=== PATIENT | male | born 1985 | race Caucasian/White ===

== ENCOUNTER 2020-07-01 18:57 | Inpatient (IN) | payer MEDICAID ==
[~2020-07-01] VITALS: Ht 137.2 cm; Wt 65.1 kg
--- NOTE | ~2020-07-01 | CON ---
[address] [address] CONSULTATION Name: AGNES WALLIS Room: [address] IN M.R.#: [id number] Admission: 07/01/20 Attend Phys: Nils Gaffney Discharge: 07/02/20 Date of : 89 Report #: [id number] THIS REPORT FOR: cc: Uriel Marr MD, Michael S. MD ~ Mitul Uriostegui MD DATE OF SERVICE: 07/02/2020 CONSULT REQUESTED BY: Dr. Osmar Newton,. INDICATION FOR CONSULTATION: Acute hypoxemic respiratory failure. HISTORY OF PRESENT ILLNESS: A 35-year-old gentleman has a history of cerebral palsy. He has a cuffless size 5 trach and a button tracheostomy with intermittent feeds. The patient has had a difficult airway in the past when the tracheostomy was last changed. The [facility] resides at a [facility]. He was reported to have had increasing lethargy as well as weakness and altered mental status and increasing white frothy oral secretions. He was therefore being taken to [facility] via EMS when he became bradycardic and heart rate dropped into the 20s. [facility] was the nearest hospital at that time and therefore, the patient was given atropine and then was transferred here. The patient initially also was hypotensive. He was also hypothermic and his temperature was only 29.9 degrees Celsius. He initially did require dopamine to maintain blood pressure. He also was given IV fluids. The patient continued to have significant shortness of breath as well as tachypnea and also copious secretions in his throat. Therefore, he was placed on a BiPAP. The patient currently is maintaining blood pressure towards the lower end of normal range. He initially was maintaining O2 saturations only in the upper 80s when I saw him initially with 40% FiO2 with a BiPAP of 10/[address] I increased the BiPAP pressures to 14/6 and we did initially increase FiO2 100%. He has just had an arterial blood gas performed, which does show a metabolic as well as respiratory acidosis with a pH of 7.295 but pO2 is now 378. The patient has had a PICC line placed. He is maintaining blood pressure without dopamine at this time. The patient is markedly lethargic and therefore is unable to provide a further history or review of systems. PAST MEDICAL HISTORY: Cerebral palsy, severe trauma as a , longstanding trach size 5 also, has a button PEG tube and a Lawrence catheter in place. It is not known to me as to whether the Lawrence catheter is long-term, right hip surgery and cholecystectomy. SOCIAL HISTORY: Lifetime nonsmoker. No known history of heavy alcohol use [place] [address] CONSULTATION Name: AGNES WALLIS Room: [address] IN M.R.#: [id number] Admission: 07/01/20 Attend Phys: Nils Gaffney Discharge: 07/02/20 Date of : 89 Report #: [id number] CURRENT MEDICATIONS: List in [employer] reviewed. HOME MEDICATIONS: List also in [employer] reviewed. ALLERGIES: No known drug allergies. FAMILY HISTORY: No pertinent family history. PHYSICAL EXAMINATION: GENERAL: He is markedly drowsy. He has some response to verbal command, but does respond to pain. VITAL SIGNS: Has a pulse of 85 and a blood pressure of 111/59. He was hypoxemic with O2 saturations only in the high 80s when I saw him initially on 40% BiPAP. Currently, he is on a BiPAP of 14/6 with 100% FiO2. He is saturating close to 100% and his pO2 on arterial blood gas is also 378, pulse of 85 and a blood pressure of 111/58, he is now off dopamine. His respiratory rate at the time of my examination was still elevated to around 25-30. He is afebrile and no longer hypothermic. His temperature is now 36.1. HEENT: Head is normocephalic and atraumatic but he appears to have a very narrow airway Mallampati 4 and will likely be a difficulty endotracheal intubation. There are some hemorrhagic secretions in his throat. NECK: Does not show raised JVP, asymmetry, mass or lymph nodes. There is a tracheostomy in place. CHEST: Symmetrical expansion on inspection and palpation. On auscultation, there are transmitted sounds from upper airways. There is some hemorrhagic secretions being suctioned from his tracheostomy as well. HEART: Regular. There is no murmur. ABDOMEN: Soft and nontender. There is a button gastrostomy in place. EXTREMITIES: Lower extremities do show 1+ edema, no calf tenderness. SKIN: Dry and intact. NEUROLOGICAL: Moves all extremities to pain. LABORATORY DATA: The patient's chest x-ray does show raised right hemidiaphragm. There are bilateral extensive infiltrates. There is a CT chest without contrast performed yesterday as well, which does not show additional findings. The patient also had a CT of the abdomen and pelvis and CT head. All of the reports are in [employer] and reviewed. PICC line does appear to be in the right atrium. The patient's lab work as well as arterial blood gases are in [employer] and these are reviewed and also discussed above. ASSESSMENT AND PLAN: 1. Compromised airway/acute hypoxemic/hypercarbic respiratory failure. The patient has a size 5 cuffless tracheostomy tube. We do not have a cuffed tracheostomy tube of the same size available in this hospital. We checked with [address] [address] CONSULTATION Name: AGNES WALLIS Room: [address] IN M.R.#: [id number] Admission: 07/01/20 Attend Phys: Nils Gaffney Discharge: 07/02/20 Date of : 89 Report #: [id number] the other hospitals and most other hospitals also do not have a cuffed tube of this unusual size. We do have a size #6 cuffed Shiley trach available, but the patient has been difficult tracheostomy change when the patient last had one performed. We do not have an ENT physician on staff and I did reviewed with Dr. Landaverde who is the general surgeon available to change tracheostomy. I feel at this time that the safer option is to transfer him over to a facility where ENT is available, if a size 5 cuffed trach is available at that institution, may consider placing that first otherwise he may need to be switched over to a size 6 trach to be adequately ventilated. Meanwhile, we will keep him on the BiPAP due to excessive leak. The return volumes on the BiPAP or not measurable at this time. Regardless, the patient's arterial blood gas shows that he is currently compensated on BiPAP and he is oxygenating adequately. He has had a PICC line already placed, would also benefit from an arterial line. 2. Pulmonary infiltrates. COVID-19 does still need to be ruled out. His antigen was negative. His PCR is pending. He is on Zosyn. If he is not transported out of here shortly then I will consider adding vancomycin after obtaining a nasal swab for methicillin-resistant Staphylococcus aureus as well as sputum for culture. We will start nebulized bronchodilators. He is on dexamethasone 6 mg daily. I will go ahead and give one dose of Solu-Medrol as well. 3. Cerebral palsy. 4. Status post PEG and trach. 5. Edema/fluid and electrolyte/hypotension/bradycardia. The bradycardia may have been due to respiratory distress. He is currently maintaining normal blood pressure. He has no other intake. Currently, we are holding tube feeds so I ordered IV fluids 50 an hour until a secure airway is obtained. I will also running on the continuous drier operator side and therefore, I ordered one dose of Lasix as well, which may help bring his potassium down also. His blood pressure as well as electrolytes will need to be followed closely and fluid intake and diuresis adjusted accordingly. He may benefit from venous Dopplers as well as an echocardiogram as well. 6. Thrombocytopenia/elevated LFTs, etiology not fully defined, follow, we will add lipase to his lab work. He has had some hemorrhagic discharge from his tracheostomy as well as throat, we will watch this closely and decide regarding subcutaneous Lovenox at prophylactic dose for deep venous thrombosis prophylaxis accordingly. The patient [place] [address] CONSULTATION Name: AGNES WALLIS Room: [address] IN [facility]#: [id number] Admission: 07/01/20 Attend Phys: Nils Gaffney Discharge: 07/02/20 Date of : 89 Report #: [id number] Total time spent providing critical care to this patient today is around 45 minutes. By: [id number] Uriostegui MD /igor
[2020-07-01 18:59] VITALS: BP 117/60
[2020-07-01] MEDS ORDERED: ACETAMINOP160 MG/5 M PER TUBE (19:14)
[2020-07-01] MEDS ORDERED: NEBULIZER MISCELL (19:15)
[2020-07-01 19:16] LABS: URINE BLOOD 3+ (Negative); URINE CLARITY SL CLOUDY; URINE COLOR YELLOW; URINE GLUCOSE-RANDOM NEGATIVE (Negative); URINE KETONES NEGATIVE (Negative); URINE NITRITE-REFLEX NEGATIVE (Negative); URINE PROTEIN 1+ (Negative); URINE SPECIFIC GRAVITY <= 1.005 (1.005-1.030); URINE UROBILINOGEN 0.2 E.U./dl (0.2-1.0)
[2020-07-01] MEDS ORDERED: NORVASC 2.5 MG2.5 M1 PO (19:16)
[2020-07-01] MEDS ORDERED: BACLOFEN 10MG T10 MG PO (19:16)
[2020-07-01] MEDS ORDERED: BENADRYL A12.5 MG/5 PO (19:17)
[2020-07-01] MEDS ORDERED: BISACODYL5 MG RECTAL (19:18)
[2020-07-01 19:19] LABS: ICTOTEST (BILI CONFIRMATORY) Negative (Negative); URINE BILIRUBIN 1+ (Negative); URINE LEUKOCYTES-REFLEX 3+ (Negative)
[2020-07-01] MEDS ORDERED: DIAZEPAM5 MG/5 ML PO (19:19)
[2020-07-01] MEDS ORDERED: REFRESH DIGITAL10 ML EA. EYE (19:19)
[2020-07-01] MEDS ORDERED: CUVPOSA1 MG/5 ML PO (19:20)
[2020-07-01] MEDS ORDERED: NYSTATIN1 EAC3 TOP (19:21)
[2020-07-01] MEDS ORDERED: SUPER THERAVIT1 EACH PO (19:21)
[2020-07-01] MEDS ORDERED: MIRALAX119 GM PO (19:22)
[2020-07-01] MEDS ORDERED: ZONEGRAN100 MG PO (19:22)
[2020-07-01] MEDS ORDERED: PHENYTOIN100 MG/41 PO (19:22)
[2020-07-01 19:26] LABS: BACTERIA-REFLEX >30 Many /HPF (None Seen); CASTS None Seen /LPF (None Seen); MUCUS 0-3 Light strn/LPF (None Seen); SQUAMOUS 0-3 Few /LPF (0-3); URINE RBC 0-2 Rare /HPF (0-2); URINE WBC-REFLEX 0-5 Rare /HPF (0-5)
[2020-07-01 19:27] LABS: AMORPHOUS PHOSPHATES Moderate /LPF (None Seen); TRIPLE PHOSPHATE CRYSTALS 0-3 Few /LPF (None Seen)
[2020-07-01 19:28] LABS: ABSOLUTE EOSINOPHILS 0.2 thou/uL (0.0-0.7); ABSOLUTE LYMPHOCYTES 1.1 thou/uL (0.8-5.3); ABSOLUTE MONOCYTES 0.6 thou/uL (0.0-1.2); ABSOLUTE NEUTROPHILS 3.9 thou/uL (1.6-8.1); BASOPHILS 0.3 %; EOSINOPHILS 3.3 %; HEMATOCRIT 39.2 % (42.0-52.0); LYMPHOCYTES 19.1 %; MCH 31.2 pg (26.0-34.0); MCHC 33.2 g/dL (28.0-37.0); MONOCYTES 10.1 %; MPV 9.3 fl. (7.2-11.1); NUCLEATED RBCS 2 /100WBC; PLATELET COUNT* 102 thou/uL (150-400); POLYS 67.2 %; RBC 4.18 mil/uL (4.50-6.00); RDW-CV 16.7 % (10.5-14.5); WBC 5.8 thou/uL (4.0-11.0)
[2020-07-01 19:37] LABS: CALCIUM 9.5 mg/dL (8.5-10.1); CREATININE 0.7 mg/dL (0.6-1.3); POTASSIUM 4.3 mmol/L (3.5-5.1)
[2020-07-01 19:39] LABS: APTT 36.8 Seconds (25.0-31.3); PROTIME 10.6 Seconds (9.20-11.50)
[2020-07-01 19:50] LABS: INFLUENZA A ANTIGEN Negative (Negative); INFLUENZA B ANTIGEN Negative (Negative)
[2020-07-01 19:52] LABS: ALBUMIN 2.7 g/dL (3.4-5.0); CK-MB MASS 2.4 ng/mL (<0.5-3.6); TOTAL BILIRUBIN 0.2 mg/dL (<0.1-1.0); TOTAL PROTEIN 7.5 g/dL (6.4-8.2)
[2020-07-01 20:11] LABS: BE -7.1 mmol/L (-2 to +3); PCO2 48.2 mmHg (35.0-45.0)
[2020-07-01 20:16] LABS: PO2 172.8 mmHg (75.0-100.0); pH 7.243 (7.340-7.450)
[2020-07-02] VITALS (32 sets, daily range): BP systolic 93–122; BP diastolic 39–65
--- NOTE | 2020-07-02 09:22 | EKG ---
[place] [address] ELECTROCARDIOGRAM REPORT Name: AGNES WALLIS Room: [address] ADM IN .R.#: [id number] Admission: 07/01/20 Attend Phys: Karthik Tam Discharge: Date of : 89 Date of Service: 07/01/20 1906 Report #: [id number] THIS REPORT FOR: //name// [facility] ED Test Date: 2020-07-01 Test Time: 19:06:26 Pat Name: AGNES WALLIS Department: Room: [facility] Gender: M [employer] Administrator: TRANG : 1985 Requested By: Ramiro Godinez Order Number: [id number] MD: Johnny Walker Measurements Intervals [place] Rate: 37 P: 28 IL: 194 QRS: 165 QRSD: 97 T: 49 QT: 539 QTc: 423 Interpretive Statements Sinus bradycardia incomplete RBBB right axis nonspecific st segment changes No previous ECG available for comparison Electronically Signed On 07-02-2020 9:22:32 PLACEMENT INTERVIEWER by Johnny Walker [email or web address] <ELECTRONICALLY SIGNED> By: Johnny Walker MD, [facility] 07/02/20 0922 190 05 Johnny Walker MD, [facility] /EPI
[2020-07-02 11:16] LABS: HEMATOCRIT 35.1 % (42.0-52.0); HEMOGLOBIN 11.8 gm/dL (14.0-18.0); MCH 31.3 pg (26.0-34.0); MCHC 33.6 g/dL (28.0-37.0); MCV 93.3 fL (80.0-100.0); MPV 9.2 fl. (7.2-11.1); NUCLEATED RBCS 2 /100WBC; PLATELET COUNT* 99 thou/uL (150-400); RBC 3.76 mil/uL (4.50-6.00); WBC 11.8 thou/uL (4.0-11.0)
[2020-07-02 11:41] LABS: ABSOLUTE LYMPHOCYTES 0.2 thou/uL (0.8-5.3); ABSOLUTE NEUTROPHILS 11.6 thou/uL (1.6-8.1); PLATELET ESTIMATE DECREASED
[2020-07-02 11:42] LABS: ANISOCYTOSIS 1+; POIKILOCYTOSIS 1+
[2020-07-02 11:45] LABS: BE -4.1 mmol/L (-2 to +3); PCO2 47.4 mmHg (35.0-45.0)
[2020-07-02 11:49] LABS: pH 7.295 (7.340-7.450)
[2020-07-02 11:59] LABS: CALCIUM 8.6 mg/dL (8.5-10.1); CREATININE 0.9 mg/dL (0.6-1.3); POTASSIUM 5.4 mmol/L (3.5-5.1)
[2020-07-02 12:03] LABS: ALBUMIN 2.4 g/dL (3.4-5.0); TOTAL BILIRUBIN 0.3 mg/dL (<0.1-1.0); TOTAL PROTEIN 6.8 g/dL (6.4-8.2)
--- NOTE | 2020-07-03 08:32 | CON ---
[facility] [address] [place] [address] CONSULTATION Name: AGNES WALLIS Room: [address] IN M.Corazon.#: [id number] Admission: 07/01/20 Attend Phys: Nils Gaffney Discharge: 07/02/20 Date of : 89 Report #: [id number] THIS REPORT FOR: cc: Uriel Marr MD, Michael S. MD ~ Johnny Walker MD [facility] DATE OF SERVICE: 07/02/2020 CARDIOLOGY CONSULTATION HISTORY OF PRESENT ILLNESS: The patient is a 35-year-old male with cerebral palsy who I was asked to see in the hospital today after he was noted to be bradycardic. The history was obtained from the records. The patient has never been here to [place] before. Unfortunately, he has cerebral palsy and he lives in a long-term. He is basically bedridden and has contractures. He has a tracheostomy and a PEG tube in place. He was brought to the Emergency Room yesterday by ambulance. He apparently had been weak and had frothy secretions. He was noted to be bradycardic and was given atropine. PAST MEDICAL HISTORY: Otherwise significant for cerebral palsy. He is bedbound. He has a tracheostomy and a PEG tube and Lawrence. Yesterday, he was less responsive and had increased secretions. His blood pressure is low and he was noted to be bradycardic. He was noted to be hypothermic. He was brought to the Emergency Room for further evaluation and treatment. MEDICATIONS: At long-term included nebulizer, amlodipine, baclofen, Valium as needed, Dilantin. ALLERGIES: He has no known drug allergies. SOCIAL HISTORY: He is a nonsmoker. REVIEW OF SYSTEMS: Could not be obtained. PHYSICAL EXAMINATION: GENERAL: Revealed a middle-aged male, lying in bed in the ICU. He had contractures. VITAL SIGNS: His blood pressure is 100 on a dopamine drip, pulse is 60. He is afebrile. HEENT: He was anicteric. Conjunctivae are pink. Mucous membranes appear dry. NECK: Veins do not appear distended. CHEST: Revealed coarse breath sounds bilaterally. CARDIOVASCULAR: Regular rate and rhythm without murmur. ABDOMEN: [place] [address] CONSULTATION Name: AGNES WALLIS Room: [address]#: [id number] Admission: 07/01/20 Attend Phys: Nils Gaffney Discharge: 07/02/20 Date of : 89 Report #: [id number] EXTREMITIES: Had no edema. NEUROLOGIC: He would withdraw from pain. RADIOLOGICAL DATA: His ECG on admission showed sinus bradycardia, right axis, incomplete right bundle-branch block. His workup in the Emergency Room yesterday, he had a portable chest x-ray that showed right hemidiaphragm is elevated. Mild interstitial infiltrates were noted. Normal heart size. His CT scan of the head performed without contrast that showed atrophy, no acute changes. LABORATORY WORK: Sodium 135, BUN 20, creatinine 0.7, glucose 68. His troponin is 0.06. BNP 33. White blood cell count 5.8, hemoglobin 13. His COVID-19 antigen test was negative. Urinalysis; 1+ protein, 3+ blood, 3+ leukocytes, many bacteria. IMPRESSION AND RECOMMENDATIONS: 1. Altered mental status. Possible sepsis. 2. Bradycardia. We would avoid beta-blockers. We would check thyroid function studies. I would not treat at this time. 3. Possible sepsis. The patient is on dopamine. 4. Cerebral palsy. The patient is basically bedridden. 5. Previous tracheostomy. 6. History of hypertension. The patient is on a calcium josé miguel. We would hold at this time. <ELECTRONICALLY SIGNED> By: Johnny Walker MD, FACC 07/03/20 0832 [id number] [id number] Walker MD, FAC /nt
== END 2020-07-02 16:13 | disposition short-term general hospital (02) | DRG 871 ==
LOC: M.ERS 18:57 → M.TBA-ER 23:30 → M.ICU 07-02 00:47
PROVIDERS: Emergency Medicine; Family Medicine; Internal Medicine Critical Care Medicine; ADMIT Internal Medicine; ATTEND Internal Medicine
PROC: B548ZZA Ultrasonography of Superior Vena Cava, Guidance (ICD-10-PCS; principal; 2020-07-02)
PROC: 5A09357 Assistance with Respiratory Ventilation, Less than 24 Consecutive Hours, Continuous Positive Airway Pressure (ICD-10-PCS; principal; 2020-07-02)
PROC: 02HV33Z Insertion of Infusion Device into Superior Vena Cava, Percutaneous Approach (ICD-10-PCS; principal; 2020-07-02)
DX: A41.9 Sepsis, unspecified organism (principal); J96.01 Acute respiratory failure with hypoxia; J96.02 Acute respiratory failure with hypercapnia; R65.21 Severe sepsis with septic shock; J69.0 Pneumonitis due to inhalation of food and vomit; Z99.11 Dependence on respirator [ventilator] status; N39.0 Urinary tract infection, site not specified; G80.9 Cerebral palsy, unspecified; R00.1 Bradycardia, unspecified; I95.9 Hypotension, unspecified; D69.6 Thrombocytopenia, unspecified; R68.0 Hypothermia, not associated with low environmental temperature; Z20.822 Contact with and (suspected) exposure to COVID-19; Z66 Do not resuscitate; Z79.899 Other long term (current) drug therapy; Z93.0 Tracheostomy status; Z74.01 Bed confinement status; Z90.49 Acquired absence of other specified parts of digestive tract; Z87.820 Personal history of traumatic brain injury